=== PATIENT | male | born 1945 | race Caucasian/White ===

== ENCOUNTER 2016-09-27 19:34 | Emergency (ER) | payer MEDICARE, BC ==
[~2016-09-27] VITALS: Ht 182.9 cm; Wt 84.1 kg
[2016-09-27 20:05] VITALS: BP 178/81; PULSE 69; RESP 14; TEMP 98.1; O2SAT 97
[2016-09-27] MEDS ORDERED: ASPI81CH7 CHEW (20:08)
[2016-09-27] MEDS ORDERED: SIMV40TA PO (20:08)
[2016-09-27] MEDS ORDERED: MORPHINE SULFATE 4 MG/ML INJ IV PUSH ONE ×2 (20:30→20:45)
[2016-09-27] MEDS ORDERED: MORPHINE SULFATE 4 MG/ML INJ IM ONE (20:30)
[2016-09-27] MEDS ORDERED: SODIUM CHLORIDE 0.9% FLUSH 10 ML FLUSH IVF PRN (20:30)
[2016-09-27] MEDS ORDERED: ONDANSETRON HCL 4 MG/2 ML VIAL IVP ONE (20:30)
[2016-09-27 20:57] LABS: AUTOMATED NEUTROPHIL # 6.7 TH/MM3 (1.8-7.7); BASOPHIL % 0.3 % (0.0-2.0); EOSINOPHIL # 0.1 TH/MM3 (0-0.4); EOSINOPHIL % 0.7 % (0.0-4.0); HEMATOCRIT 42.4 % (39.0-51.0); HEMO FLAGS DIFF FINAL; LYMPH % 10.5 % (9.0-44.0); LYMPHOCYTE # 0.8 TH/MM3 (1.0-4.8); MEAN CELL VOLUME 89.3 FL (80.0-100.0); MEAN CORPUSCULAR HEMOGLOBIN 30.7 PG (27.0-34.0); MEAN CORPUSCULAR HGB CONC 34.4 % (32.0-36.0); MONO % 5.1 % (0.0-8.0); NEUT % 83.4 % (16.0-70.0); PLATELET COUNT 155 TH/MM3 (150-450); RED BLOOD COUNT 4.75 MIL/MM3 (4.50-5.90); RED CELL DISTRIBUTION WIDTH 13.2 % (11.6-17.2); WHITE BLOOD COUNT 8.1 TH/MM3 (4.0-11.0)
[2016-09-27 20:58] LABS: ANION GAP 10 MEQ/L (5-15); BICARBONATE 24.4 MEQ/L (21.0-32.0); BLOOD UREA NITROGEN 17 MG/DL (7-18); CHLORIDE 104 MEQ/L (98-107); GLOMERULAR FILTRATION RATE 86 ML/MIN (>89); POTASSIUM 4.1 MEQ/L (3.5-5.1); SODIUM (NA) 138 MEQ/L (136-145)
[2016-09-27 21:02] LABS: ALKALINE PHOSPHATASE 70 U/L (45-117); ALT (GPT) 32 U/L (12-78); AST (GOT) 28 U/L (15-37); TOTAL BILIRUBIN ADULT 0.6 MG/DL (0.2-1.0)
[2016-09-27 21:06] LABS: APTT (PATIENT) 28.2 SEC (24.3-30.1)
--- NOTE | 2016-09-27 21:30 | PD ---
HPI Chief Complaint: Hip Injury Time Seen by Provider: 20:25 Travel History International Travel<30 days: No Contact w/Intl Traveler<30days: No Traveled to known affect area: No History of Present Illness HPI 71-year-old male presents to emergency Department with sudden onset right hip pain and decreased range of motion. Patient has history of bilateral hip replacements, the one on the left in 2006, and the one on the right and 2001. Patient states he played golf today and took a shower when he arrived home. He states he tied his left shoe, and then bent to tie his right shoe when he had sudden onset pain and "crunching" in the right hip. Patient arrives via EMS with the right hip and lower extremity and internal rotation and bent. Currently his pain is 3 out of 10 if he doesn't move it. But if he tries it's move his hip his pain is excruciating. Patient has no history of hip dislocation in the past. He has no other complaints or injuries. She has a history of non-Hodgkin's lymphoma which she's been in remission in the for the past 18 years. He has no other significant medical history. He has no known drug allergies. PFSH Past Medical History Cancer: Yes Cardiovascular Problems: Yes High Cholesterol: Yes (NON HODGKINS LYMPHOMA ) Chemotherapy: Yes Tetanus Vaccination: < 5 Years Past Surgical History Joint Replacement: Yes (BILATERAL HIP SURGERY ) Other Surgery: Yes (LYMPH NODES REMOVED) Social History Alcohol Use: Yes Tobacco Use: No Substance Use: No Allergies-Medications (Allergen,Severity, Reaction): Coded Allergies: No Known Allergies (Unverified , 09/27/16) Reported Meds & Prescriptions Reported Meds & Active Scripts Active Tylenol-Codeine #3 (Acetaminophen-Codeine) 300-30 mg Tab 1-2 Tab PO Q6H PRN Folding Walker/5" Wheels (Device) 1 Mis Mis 1 Ea .ROUTE DIRECTED Ibuprofen 600 Mg Tab 600 Mg PO Q6H PRN Reported Aspirin Children's (Aspirin) 81 Mg Chew 81 Mg CHEW DAILY Simvastatin 40 Mg Tab 40 Mg PO HS Review of Systems Except as stated in HPI: all other systems reviewed are Neg General / Constitutional: No: Fever Eyes: No: Visual changes HENT: No: Headaches Cardiovascular: No: Chest Pain or Discomfort Respiratory: No: Shortness of Breath Gastrointestinal: No: Abdominal Pain Genitourinary: No: Dysuria Musculoskeletal: No: Pain Skin: No Rash Neurologic: No: Weakness Psychiatric: No: Depression Endocrine: No: Polydipsia Hematologic/Lymphatic: No: Easy Bruising Physical Exam Narrative GENERAL: Patient appears in mild to moderate distress. SKIN: Warm and dry. Normal color. Normal turgor. No obvious signs of trauma. HEAD: Atraumatic. Normocephalic. EYES: Pupils equal and round. No scleral icterus. No injection or drainage. ENT: No nasal bleeding or discharge. Mucous membranes pink and moist. Pharynx is clear. Airway is patent. NECK: Trachea midline. Neck is supple nontender. CARDIOVASCULAR: Regular rate and rhythm. RESPIRATORY: No accessory muscle use. Clear to auscultation. Breath sounds equal bilaterally. MUSCULOSKELETAL: Extremities without clubbing, cyanosis, or edema. Patient has obvious deformity of the right hip suggestive of either dislocation or fracture. The right leg is somewhat shortened and internally rotated. He has normal neurovascular exam distal to the right leg. NEUROLOGICAL: Awake and alert. No obvious cranial nerve deficits. Motor grossly within normal limits. Five out of 5 muscle strength in the arms and legs. Normal speech. PSYCHIATRIC: Appropriate mood and affect; insight and judgment normal. Data Data Last Documented VS Vital Signs Date Time Temp Pulse Resp B/P Pulse Ox O2 Delivery O2 Flow Rate FiO2 09/27/16 20:05 98.1 69 14 178/81 97 Orders Complete Blood Count With Diff (09/27/16 20:18) Comprehensive Metabolic Panel (09/27/16 20:18) Prothrombin Time / Inr (Pt) (09/27/16 20:18) Act Partial Throm Time (Ptt) (09/27/16 20:18) Femur (Ap & Lat/2vws) (09/27/16 20:18) Hip, Uni(Ap&Lat) Wo Ap Pelvis (09/27/16 20:18) Iv Access Insert/Monitor (09/27/16 20:18) Oximetry (09/27/16 20:18) Ecg Monitoring (09/27/16 20:18) Morphine Inj (Morphine Inj) (09/27/16 20:30) Ondansetron Inj (Zofran Inj) (09/27/16 20:30) Sodium Chloride 0.9% Flush (Ns Flush) (09/27/16 20:30) Morphine Inj (Morphine Inj) (09/27/16 20:30) Morphine Inj (Morphine Inj) (09/27/16 20:45) Propofol 200 Mg/20 Ml Inj (Diprivan 200 (09/27/16 22:30) Propofol 500 Mg/50 Ml Inj (Diprivan 500 (09/27/16 22:28) Hip, Uni(Ap&Lat) Wo Ap Pelvis (09/27/16 22:39) Splinting (09/27/16 ) Immobilizer Knee 20 Inch (09/27/16 ) Labs Laboratory Tests Test 09/27/16 20:30 White Blood Count 8.1 TH/MM3 Red Blood Count 4.75 MIL/MM3 Hemoglobin 14.6 GM/DL Hematocrit 42.4 % Mean Corpuscular Volume 89.3 FL Mean Corpuscular Hemoglobin 30.7 PG Mean Corpuscular Hemoglobin 34.4 % Concent Red Cell Distribution Width 13.2 % Platelet Count 155 TH/MM3 Mean Platelet Volume 8.2 FL Neutrophils (%) (Auto) 83.4 % Lymphocytes (%) (Auto) 10.5 % Monocytes (%) (Auto) 5.1 % Eosinophils (%) (Auto) 0.7 % Basophils (%) (Auto) 0.3 % Neutrophils # (Auto) 6.7 TH/MM3 Lymphocytes # (Auto) 0.8 TH/MM3 Monocytes # (Auto) 0.4 TH/MM3 Eosinophils # (Auto) 0.1 TH/MM3 Basophils # (Auto) 0.0 TH/MM3 CBC Comment DIFF FINAL Differential Comment Prothrombin Time 11.0 SEC Prothromb Time International 1.0 RATIO Ratio Activated Partial 28.2 SEC Thromboplast Time Sodium Level 138 MEQ/L Potassium Level 4.1 MEQ/L Chloride Level 104 MEQ/L Carbon Dioxide Level 24.4 MEQ/L Anion Gap 10 MEQ/L Blood Urea Nitrogen 17 MG/DL Creatinine 0.87 MG/DL Estimat Glomerular Filtration 86 ML/MIN Rate Random Glucose 104 MG/DL Calcium Level 9.2 MG/DL Total Bilirubin 0.6 MG/DL Aspartate Amino Transf 28 U/L (AST/SGOT) Alanine Aminotransferase 32 U/L (ALT/SGPT) Alkaline Phosphatase 70 U/L Total Protein 7.6 GM/DL Albumin 3.8 GM/DL MDM Medical Decision Making Medical Screen Exam Complete: Yes Emergency Medical Condition: Yes Medical Record Reviewed: Yes Differential Diagnosis Right hip pain. Right hip dislocation. Right hip fracture. Narrative Course Patient is medically stable at time of exam. IV access is obtained, and labs are drawn includes CBC, CMP and a PT and INR. Patient is given 4 mg Zofran IV as well as 4 mg morphine IV. X-ray of the right hip and femur are obtained. X-ray shows dislocation of the right hip without obvious fracture per radiologist. Patient is discussed with Dr. Chicas. Conscious sedation paperwork is printed out for hip relocation. 2230 hrs. hip was relocated with conscious sedation per Dr. Chicas. Please see her note for procedure. Repeat right hip x-ray is ordered postreduction. Patient is placed in a knee immobilizer which should remain in place until seen by orthopedist. Patient called Dr. Pierson, the orthopedist director of quality control for follow-up. Patient can return to emergency Department with any worsening symptoms as needed. Diagnosis Primary Impression: Dislocation of internal right hip prosthesis, initial encounter Referrals: Quinton Pierson MD call for appointment Patient Instructions: General Instructions Additional Instructions: Patient is placed in a knee immobilizer which should remain in place until seen by orthopedist. Patient called Dr. Pierson the orthopedist director of quality control for follow-up. Patient can return to emergency Department with any worsening symptoms as needed. Scripts Acetaminophen-Codeine (Tylenol-Codeine #3)300-30 mg Tab1-2 Tab PO Q6H PRN (PAIN ) #20 TAB Ref 0 Prov:Dustin Chicas MD 09/27/16 Folding Walker/5" Wheels 1 Mis Mis #1 Ea .route As Directed Prov:Dustin Chicas MD 09/27/16 Ibuprofen 600 Mg [id number] Mg PO Q6H PRN (Pain/Inflammation) #40 TAB Prov:Dustin Chicas MD 09/27/16 Disposition: 01 DISCHARGE HOME Condition: Stable Marcell Medrano Sep 27, 2016 21:30
--- NOTE | 2016-09-27 21:42 | RADRPT ---
EXAM DATE/TIME: 09/27/2016 21:01 [facility] COMPARISON: No previous studies available for comparison. INDICATIONS : Fall. MEDICAL HISTORY : None. SURGICAL HISTORY : Bilateral hip replacements ENCOUNTER: Initial ACUITY: 1 day PAIN SCORE: 10/10 LOCATION: Right hip FINDINGS: The femoral component of total hip arthroplasty is completely dislocated superolaterally. CONCLUSION: Dislocated femoral component superolaterally. Tyler Gilbert MD on September 27, 2016 at 21:40 Board Certified Radiologist. This report was verified electronically.
--- NOTE | 2016-09-27 21:43 | RADRPT ---
EXAM DATE/TIME: 09/27/2016 21:02 [facility] COMPARISON: No previous studies available for comparison. INDICATIONS : Fall. MEDICAL HISTORY : None. SURGICAL HISTORY : Bilateral hip replacements. ENCOUNTER: Initial ACUITY: 1 day PAIN SCORE: 10/10 LOCATION: Right femur FINDINGS: The femoral component of right total hip arthroplasty is dislocated superolaterally completely. CONCLUSION: Complete dislocation of total hip arthroplasty. Tyler Gilbert MD on September 27, 2016 at 21:41 Board Certified Radiologist. This report was verified electronically.
[2016-09-27 22:25] VITALS: O2SAT 95
[2016-09-27] MEDS ORDERED: PROPOFOL 500 MG/50 ML INJ 50 ML ONE (22:28)
[2016-09-27] MEDS ORDERED: PROPOFOL 200 MG/20 ML AMP IV ONE (22:30)
[2016-09-27] MEDS ORDERED: TYLETAB34 PO (22:42)
[2016-09-27] MEDS ORDERED: MISC-274 (22:42)
[2016-09-27] MEDS ORDERED: IBUP-232 PO (22:42)
--- NOTE | 2016-09-27 22:46 | PD ---
Physical Exam Date Seen by Provider: Sep 27, 2016 Time Seen by Provider: 22:42 Narrative 71-year-old male came in with right hip injury feeling a pop while he was sitting in on tying his shoelaces. Patient was seen by the PA and I'm supervising him. X-ray was suggestive of hip dislocation. Patient has prosthetic hip. Procedural sedation and hip reduction was done. Dr. Zafar was in the room during the procedural sedation while I reduced the hip. Please refer to my procedure note. Awaiting for the post reduction x-ray. However both leg lengths are equal. Minimal immobilizer was applied. Patient will be discharged home if x-ray looks good. Data Data Last Documented VS Vital Signs Date Time Temp Pulse Resp B/P Pulse Ox O2 Delivery O2 Flow Rate FiO2 09/27/16 23:40 66 16 148/76 100 09/27/16 22:49 Nasal Cannula 2 09/27/16 22:25 100 09/27/16 20:05 98.1 Orders Complete Blood Count With Diff (09/27/16 20:18) Comprehensive Metabolic Panel (09/27/16 20:18) Prothrombin Time / Inr (Pt) (09/27/16 20:18) Act Partial Throm Time (Ptt) (09/27/16 20:18) Femur (Ap & Lat/2vws) (09/27/16 20:18) Hip, Uni(Ap&Lat) Wo Ap Pelvis (09/27/16 20:18) Iv Access Insert/Monitor (09/27/16 20:18) Oximetry (09/27/16 20:18) Ecg Monitoring (09/27/16 20:18) Morphine Inj (Morphine Inj) (09/27/16 20:30) Ondansetron Inj (Zofran Inj) (09/27/16 20:30) Sodium Chloride 0.9% Flush (Ns Flush) (09/27/16 20:30) Morphine Inj (Morphine Inj) (09/27/16 20:30) Morphine Inj (Morphine Inj) (09/27/16 20:45) Propofol 200 Mg/20 Ml Inj (Diprivan 200 (09/27/16 22:30) Propofol 500 Mg/50 Ml Inj (Diprivan 500 (09/27/16 22:28) Splinting (09/27/16 ) Immobilizer Knee 20 Inch (09/27/16 ) Hip, Ap Only Wo Ap Pelvis (09/27/16 22:39) Labs Laboratory Tests Test 09/27/16 20:30 White Blood Count 8.1 TH/MM3 Red Blood Count 4.75 MIL/MM3 Hemoglobin 14.6 GM/DL Hematocrit 42.4 % Mean Corpuscular Volume 89.3 FL Mean Corpuscular Hemoglobin 30.7 PG Mean Corpuscular Hemoglobin 34.4 % Concent Red Cell Distribution Width 13.2 % Platelet Count 155 TH/MM3 Mean Platelet Volume 8.2 FL Neutrophils (%) (Auto) 83.4 % Lymphocytes (%) (Auto) 10.5 % Monocytes (%) (Auto) 5.1 % Eosinophils (%) (Auto) 0.7 % Basophils (%) (Auto) 0.3 % Neutrophils # (Auto) 6.7 TH/MM3 Lymphocytes # (Auto) 0.8 TH/MM3 Monocytes # (Auto) 0.4 TH/MM3 Eosinophils # (Auto) 0.1 TH/MM3 Basophils # (Auto) 0.0 TH/MM3 CBC Comment DIFF FINAL Differential Comment Prothrombin Time 11.0 SEC Prothromb Time International 1.0 RATIO Ratio Activated Partial 28.2 SEC Thromboplast Time Sodium Level 138 MEQ/L Potassium Level 4.1 MEQ/L Chloride Level 104 MEQ/L Carbon Dioxide Level 24.4 MEQ/L Anion Gap 10 MEQ/L Blood Urea Nitrogen 17 MG/DL Creatinine 0.87 MG/DL Estimat Glomerular Filtration 86 ML/MIN Rate Random Glucose 104 MG/DL Calcium Level 9.2 MG/DL Total Bilirubin 0.6 MG/DL Aspartate Amino Transf 28 U/L (AST/SGOT) Alanine Aminotransferase 32 U/L (ALT/SGPT) Alkaline Phosphatase 70 U/L Total Protein 7.6 GM/DL Albumin 3.8 GM/DL [facility] Supervised Visit with EDD: Yes Procedures Procedure Narrative Right hip dislocation reduction: Yasir method was used to reduce the hip. After conscious sedation and propofol eventually the hip went in. Patient tolerated the procedure well. Leg lengths were equal. Leg lengths were equal Immobilizer was applied. Distal pulses present. Patient will be discharged home. Diagnosis Primary Impression: Dislocation of internal right hip prosthesis, initial encounter Referrals: Quinton Pierson MD call for appointment Patient Instructions: General Instructions Scripts Acetaminophen-Codeine (Tylenol-Codeine #3)300-30 mg Tab1-2 Tab PO Q6H PRN (PAIN ) #20 TAB Ref 0 Prov:Dustin Chicas MD 09/27/16 Folding Walker/5" Wheels 1 Mis Mis #1 Ea .route As Directed Prov:Dustin Chicas MD 09/27/16 Ibuprofen 600 Mg [id number] Mg PO Q6H PRN (Pain/Inflammation) #40 TAB Prov:Dustin Chicas MD 09/27/16 Disposition: 01 DISCHARGE HOME Condition: Stable Dustin Chicas MD Sep 27, 2016 22:46
[2016-09-27 22:49] VITALS: BP 116/58; PULSE 68; RESP 16; O2SAT 100
--- NOTE | 2016-09-27 23:07 | RADRPT ---
EXAM DATE/TIME: 09/27/2016 22:50 [facility] COMPARISON: HIP RIGHT (AP&LAT 2/3VWS) WO AP PELVIS, September 27, 2016, 21:01. INDICATIONS : Post reduction right hip MEDICAL HISTORY : None. SURGICAL HISTORY : Bilateral hip replacements. ENCOUNTER: Subsequent ACUITY: 1 day PAIN SCORE: 0/10 LOCATION: Right Hip FINDINGS: Patient has a right bipolar hip arthroplasty. On this one view study alignment appears normal. Previo usly seen superior dislocation has been reduced. No fracture. CONCLUSION: Dislocated arthroplasty has been reduced. Alignment currently appears normal on this one view study. Kit Rose MD on September 27, 2016 at 23:05 Board Certified Radiologist. This report was verified electronically.
--- NOTE | 2016-09-27 23:14 | PD ---
Physical Exam Date Seen by Provider: Sep 27, 2016 Data Data Last Documented VS Vital Signs Date Time Temp Pulse Resp B/P Pulse Ox O2 Delivery O2 Flow Rate FiO2 09/27/16 22:49 68 16 116/58 100 Nasal Cannula 2 09/27/16 22:25 100 09/27/16 20:05 98.1 Orders Complete Blood Count With Diff (09/27/16 20:18) Comprehensive Metabolic Panel (09/27/16 20:18) Prothrombin Time / Inr (Pt) (09/27/16 20:18) Act Partial Throm Time (Ptt) (09/27/16 20:18) Femur (Ap & Lat/2vws) (09/27/16 20:18) Hip, Uni(Ap&Lat) Wo Ap Pelvis (09/27/16 20:18) Iv Access Insert/Monitor (09/27/16 20:18) Oximetry (09/27/16 20:18) Ecg Monitoring (09/27/16 20:18) Morphine Inj (Morphine Inj) (09/27/16 20:30) Ondansetron Inj (Zofran Inj) (09/27/16 20:30) Sodium Chloride 0.9% Flush (Ns Flush) (09/27/16 20:30) Morphine Inj (Morphine Inj) (09/27/16 20:30) Morphine Inj (Morphine Inj) (09/27/16 20:45) Propofol 200 Mg/20 Ml Inj (Diprivan 200 (09/27/16 22:30) Propofol 500 Mg/50 Ml Inj (Diprivan 500 (09/27/16 22:28) Splinting (09/27/16 ) Immobilizer Knee 20 Inch (09/27/16 ) Hip, Ap Only Wo Ap Pelvis (09/27/16 22:39) Labs Laboratory Tests Test 09/27/16 20:30 White Blood Count 8.1 TH/MM3 Red Blood Count 4.75 MIL/MM3 Hemoglobin 14.6 GM/DL Hematocrit 42.4 % Mean Corpuscular Volume 89.3 FL Mean Corpuscular Hemoglobin 30.7 PG Mean Corpuscular Hemoglobin 34.4 % Concent Red Cell Distribution Width 13.2 % Platelet Count 155 TH/MM3 Mean Platelet Volume 8.2 FL Neutrophils (%) (Auto) 83.4 % Lymphocytes (%) (Auto) 10.5 % Monocytes (%) (Auto) 5.1 % Eosinophils (%) (Auto) 0.7 % Basophils (%) (Auto) 0.3 % Neutrophils # (Auto) 6.7 TH/MM3 Lymphocytes # (Auto) 0.8 TH/MM3 Monocytes # (Auto) 0.4 TH/MM3 Eosinophils # (Auto) 0.1 TH/MM3 Basophils # (Auto) 0.0 TH/MM3 CBC Comment DIFF FINAL Differential Comment Prothrombin Time 11.0 SEC Prothromb Time International 1.0 RATIO Ratio Activated Partial 28.2 SEC Thromboplast Time Sodium Level 138 MEQ/L Potassium Level 4.1 MEQ/L Chloride Level 104 MEQ/L Carbon Dioxide Level 24.4 MEQ/L Anion Gap 10 MEQ/L Blood Urea Nitrogen 17 MG/DL Creatinine 0.87 MG/DL Estimat Glomerular Filtration 86 ML/MIN Rate Random Glucose 104 MG/DL Calcium Level 9.2 MG/DL Total Bilirubin 0.6 MG/DL Aspartate Amino Transf 28 U/L (AST/SGOT) Alanine Aminotransferase 32 U/L (ALT/SGPT) Alkaline Phosphatase 70 U/L Total Protein 7.6 GM/DL Albumin 3.8 GM/DL [facility] Supervised Visit with EDD: No Narrative Course I was asked by Dr. Chicas to perform conscious sedation for patient for right hip reduction Procedures Procedure Narrative After the risks and benefits were discussed the following procedure was performed: MODERATE SEDATION: The patient was placed on a quality assurance monitor body and pulse oximetry. An ambu bag and suction was immediately available at bedside. The patient was monitored by the nurse. Oxygen saturation , heart rate and blood pressure were monitored. Procedural sedation was acheived using 150mg of propofol . The patient was observed until awake and alert. Procedural Sedation time in attendance was 20 minutes. Diagnosis Primary Impression: Dislocation of internal right hip prosthesis, initial encounter Referrals: Quinton Pierson MD call for appointment Patient Instructions: General Instructions Additional Instruction: Patient is placed in a knee immobilizer which should remain in place until seen by orthopedist. Patient called Dr. Pierson, the orthopedist production supv for follow-up. Patient can return to emergency Department with any worsening symptoms as needed. Scripts Acetaminophen-Codeine (Tylenol-Codeine #3)300-30 mg Tab1-2 Tab PO Q6H PRN (PAIN ) #20 TAB Ref 0 Prov:Dustin Chicas MD 09/27/16 Folding Walker/5" Wheels 1 Mis Mis #1 Ea .route As Directed Prov:Dustin Chicas MD 09/27/16 Ibuprofen 600 Mg Fkg140 Mg PO Q6H PRN (Pain/Inflammation) #40 TAB Prov:Dustin Chicas MD 09/27/16 Disposition: 01 DISCHARGE HOME Condition: Stable Shannen Em DO Sep 27, 2016 23:14
[2016-09-27 23:40] VITALS: BP 148/76
== END 2016-09-28 02:25 | disposition home or self-care (01) ==
LOC: NEPC 19:34
DX: T84.020A Dislocation of internal right hip prosthesis, initial encounter (principal); X58.XXXA Exposure to other specified factors, initial encounter; Y79.2 Prosthetic and other implants, materials and accessory orthopedic devices associated with adverse incidents; Z85.72 Personal history of non-Hodgkin lymphomas; Z96.643 Presence of artificial hip joint, bilateral
CPT/HCPCS: 27265; 73501; 73502; 73552; 80053; 85025; 85610; 85730; 96374; 96375; 99156; 99284; J2270; J2405; L1830